=== PATIENT | female | born 1995 | race Hispanic/Latino ===

== ENCOUNTER 2021-11-28 18:07 | Emergency (ER) | payer BC ==
[~2021-11-28] VITALS: Ht 157.5 cm; Wt 72.2 kg
[2021-11-28] MEDS ORDERED: LIDOCAINE HCL 1% LOCAL INJ 20 ML VIAL INJ STA (18:39)
[2021-11-28] MEDS ORDERED: CEPHALEXIN500 MG PO ×2 (18:50→18:59)
== END 2021-11-28 19:30 | disposition home or self-care (01) ==
LOC: FSED 18:46
DX: L60.0 Ingrowing nail (principal); L03.032 Cellulitis of left toe; B35.1 Tinea unguium
CPT/HCPCS: 99283